=== PATIENT | male | born 1975 | race Caucasian/White ===

== ENCOUNTER 2017-01-24 07:05 | Emergency (ER) | payer BC ==
[2017-01-24 07:14] VITALS: BP 141/70
--- NOTE | 2017-01-24 07:23 | UC ---
Throat Pain/Nasal Andi HPI - HPI Summary HPI Summary: 41 yo male with sore throat x 3 days has felt feverish with HURST and myalgias no n/v/d - History of Current Complaint Chief Complaint: UCRespiratory Stated Complaint: FEVER,THROAT Time Seen by Provider: 01/24/17 07:11 Hx Obtained From: Patient Onset/Duration: Gradual Onset, Lasting Days Severity: Moderate Pain Intensity: 4 Pain Scale Used: 0-10 Numeric Cough: None Associated Signs & Symptoms: Positive: Fever - wilfredo - Epiglottits Risk Factors Epiglottis Risk Factors: Negative - Allergies/Home Medications Allergies/Adverse Reactions: Allergies Allergy/AdvReac Type Severity Reaction Status Date / Time cats Allergy Hives/Diff. Uncoded 01/24/17 07:14 Breathing/I tching Home Medications: Home Medications Ibuprofen TAB* [Motrin TAB* 800 MG] 800 mg PO ONCE 01/24/17 [History Confirmed 01/24/17] PMH/Surg Hx/FS Hx/Imm Hx Previously Healthy: Yes - Surgical History Surgical History: None - Family History Known Family History: Positive: Diabetes Negative: Cardiac Disease, Hypertension - Social History Alcohol Use: Rare Substance Use Type: None Smoking Status (MU): Heavy Every Day Tobacco Smoker Amount Used/How Often: 1/2ppd - Immunization History Most Recent Influenza Vaccination: no Review of Systems Constitutional: Fever - wilfredo Skin: Negative Eyes: Negative ENT: Sore Throat Respiratory: Negative Cardiovascular: Negative Gastrointestinal: Negative Genitourinary: Negative Motor: Negative Neurovascular: Negative Musculoskeletal: Myalgia Neurological: Headache Psychological: Negative Is Patient Immunocompromised?: No All Other Systems Reviewed And Are Negative: Yes Physical Exam Triage Information Reviewed: Yes Appearance: Well-Appearing, No Pain Distress, Well-Nourished Vital Signs: Initial Vital Signs Temp 99.3 F 01/24/17 07:10 Pulse 94 01/24/17 07:10 Resp 16 01/24/17 07:10 BP 141/70 01/24/17 07:10 Pulse Ox 97 01/24/17 07:10 Vital Signs Reviewed: Yes Eyes: Positive: Conjunctiva Clear ENT: Positive: Hearing grossly normal, Pharyngeal erythema. Negative: Nasal congestion, Nasal drainage, Tonsillar swelling, Tonsillar exudate, Trismus, Muffled/hoarse voice Neck: Positive: Supple, Nontender, No Lymphadenopathy Respiratory: Positive: Lungs clear, Normal breath sounds, No respiratory distress Cardiovascular: Positive: RRR, No Murmur Musculoskeletal: Positive: ROM Intact, No Edema Neurological: Positive: Alert Psychological Exam: Normal Psychological: Positive: Decreased Age Appropriate Behavior Throat Pain/Nasal Course/Dx - Course Course Of Treatment: RS (-) - Differential Dx/Diagnosis Provider Diagnoses: pharyngitis. elevated BP. tobacco use. GERD Discharge - Discharge Plan Condition: Stable Disposition: HOME Prescriptions: Cephalexin CAP* [Keflex CAP*] 500 mg PO BID #20 cap Famotidine TAB* [Pepcid 20 MG TAB*] 20 mg PO DAILY #14 tab Patient Education Materials: Pharyngitis (ED), Gastroesophageal Reflux Disease (ED) Referrals: No Primary Care Phys,NOPCP [Primary Care Provider] - Additional Instructions: recheck [facility] next week if not better your BP was high today and should be followed decrease caffeine you should decrease or stop smoking
== END 2017-01-24 07:46 | disposition home or self-care (01) ==
LOC: UCCORT 07:05
DX: J02.9 Acute pharyngitis, unspecified (principal); R03.0 Elevated blood-pressure reading, without diagnosis of hypertension; Z72.0 Tobacco use; K21.9 Gastro-esophageal reflux disease without esophagitis
CPT/HCPCS: 87651; 99202; G0463

== ENCOUNTER 2017-08-04 09:46 | Emergency (ER) | payer BC ==
[2017-08-04 10:45] VITALS: BP 141/95
--- NOTE | 2017-08-04 11:30 | ED ---
Throat Pain/Nasal Congestion - HPI Summary HPI Summary: 42 yr old male with the complaint of sore throat. Onset of symptoms about two days ago, with associated fatigue and fever, chills. No drooling, no stridor. - History of Current Complaint Chief Complaint: UCGeneralIllness Time Seen by Provider: 08/04/17 11:03 - Allergies/Home Medications Allergies/Adverse Reactions: Allergies Allergy/AdvReac Type Severity Reaction Status Date / Time cats Allergy Hives/Diff. Uncoded 01/24/17 07:14 Breathing/I tching Home Medications: Home Medications Acetaminophen [Mapap] 500 mg PO 08/04/17 [History] Omeprazole 20 08/04/17 [History] PMH/Surg Hx/FS Hx/Imm Hx Infectious Disease History: Yes Infectious Disease History: Reports: Hx Shingles - 15 YEARS AGO Denies: Traveled Outside the [place] in Last 30 Days - Family History Known Family History: Positive: Diabetes Negative: Cardiac Disease, Hypertension - Social History Alcohol Use: Rare Substance Use Type: Reports: None Smoking Status (MU): Former Smoker Amount Used/How Often: 1/2ppd Have You Smoked in the Last Year: Yes Review of Systems Positive: Chills, Fatigue Positive: Sore Throat All Other Systems Reviewed And Are Negative: Yes Physical Exam Triage Information Reviewed: Yes Vital Signs On Initial Exam: Initial Vitals Temp Pulse Resp BP Pulse Ox 97.5 F 81 18 141/95 98 08/04/17 10:35 08/04/17 10:35 08/04/17 10:35 08/04/17 10:35 08/04/17 10:35 Vital Signs Reviewed: Yes Appearance: Positive: Well-Appearing, No Pain Distress Skin: Positive: Warm, Skin Color Reflects Adequate Perfusion Head/Face: Positive: Normal Head/Face Inspection Eyes: Positive: EOMI ENT: Positive: Pharyngeal erythema, TMs normal Neck: Positive: Supple, Nontender Respiratory/Lung Sounds: Positive: Clear to Auscultation, Breath Sounds Present Cardiovascular: Positive: RRR. Negative: Murmur Abdomen Description: Positive: Nontender Musculoskeletal: Positive: Strength/ROM Intact Neurological: Positive: Sensory/Motor Intact, Alert, Oriented to Person Place, Time, CN Intact II-III Psychiatric: Positive: Normal - Marty Coma Scale Best Eye Response: 4 - Spontaneous Best Motor Response: 6 - Obeys Commands Best Verbal Response: 5 - Oriented Coma Scale Total: 15 Diagnostics - Vital Signs Vital Signs Temp Pulse Resp BP Pulse Ox 08/04/17 10:35 97.5 F 81 18 141/95 98 - Laboratory Lab Results: Lab Results 08/04/17 Range/Units 11:01 Group A Strep Rapid Positive A (Negative) Lab Statement: Any lab studies that have been ordered have been reviewed, and results considered in the medical decision making process. EENT Course/Dx - Course Course Of Treatment: 42 yr old with strep pharyngitis, Rx amox - Diagnoses Provider Diagnoses: Strep pharyngitis Discharge - Discharge Plan Condition: Good Disposition: HOME Prescriptions: Amoxicillin PO (*) [Amoxicillin 500 MG CAP*] 500 mg PO TID #30 cap Patient Education Materials: Strep Throat (ED), Hypertension (ED) Referrals: KASANDRA Tate [Primary Care Provider] -
== END 2017-08-04 11:39 | disposition home or self-care (01) ==
LOC: UCCORT 09:46
DX: J02.0 Streptococcal pharyngitis (principal); Z87.891 Personal history of nicotine dependence
CPT/HCPCS: 87651; 99212; G0463